=== PATIENT | male | born 1960 | race Caucasian/White ===

== ENCOUNTER 2024-09-03 09:27 | Inpatient (IN) | payer BC ==
[~2024-09-03] VITALS: Ht 182.9 cm; Wt 122.5 kg
[2024-09-03] VITALS (9 sets, daily range): BP systolic 129–156; BP diastolic 75–96; PULSE 74–137; RESP 20–24; TEMP 99.1–103; O2SAT 96–97
[~2024-09-03 09:27] MED LIST: ACTOS15 MG PO; ALDACTONE25 MG PO; AMLODIPINE BESY10 MG PO; ASPIRIN EC81 MG PO; BENICAR20 MG PO; BYSTOLIC10 MG PO; COREG12.5 MG PO; CRESTOR10 MG PO; DOXAZOSIN MESYLA2 MG PO; Docusate Sodium PO; FUROSEMIDE40 MG PO; GLIMEPIRIDE2 MG PO; HYDRALAZINE HCL25 MG PO; Insulin Glargine SQ; JANUVIA50 MG PO; MELATONIN3 MG PO; Multivitamins/Minerals PO; NORVASC5 MG PO
[2024-09-03 11:00] LABS: BASOPHILS # (AUTO) 0.1 (0.0-0.1); BASOPHILS % 0.4 % (0.0-1.0); EOSINOPHILS % 0.1 % (0.0-6.0); HEMATOCRIT 35.2 % (38.2-49.6); HEMOGLOBIN 11.5 g/dL (14.0-18.0); LYMPHOCYTES # (AUTO) 0.8 (1.0-3.2); LYMPHOCYTES % 5.9 % (18.0-39.1); MEAN CORPUSCULAR HEMOGLOBIN 31.2 pg (28-32); MEAN CORPUSCULAR HGB CONC 32.7 g/dL (31-35); MEAN CORPUSCULAR VOLUME 95.4 fL (81-99); MONOCYTES # (AUTO) 0.7 (0.2-0.8); MONOCYTES % 5.6 % (4.4-11.3); NEUTROPHILS # (AUTO) 11.5 (2.1-6.9); NEUTROPHILS % 87.5 % (38.7-80.0); PLATELET COUNT 152 x10e3/uL (140-360); RED BLOOD COUNT 3.69 x10e6/uL (4.3-5.7); RED CELL DISTRIBUTION WIDTH 13.8 % (11.7-14.4); WHITE BLOOD COUNT 13.15 x10e3/uL (4.8-10.8)
[2024-09-03 11:14] LABS: BILIRUBIN,URINE NEGATIVE (NEGATIVE); CLARITY,URINE CLOUDY (CLEAR); COLOR,URINE YELLOW (YELLOW); GLUCOSE, URINE 1+ (NEGATIVE); KETONES,URINE NEGATIVE (NEGATIVE); LEUKOCYTE ESTERASE ,URINE LARGE (NEGATIVE); NITRITE,URINE NEGATIVE (NEGATIVE); PH,URINE 5.5 (5 - 7); PROTEIN,URINE DIPSTICK >=300 (NEGATIVE); URINE UROBILINOGEN 0.2 mg/dL (0.2 - 1)
[2024-09-03 11:20] LABS: ALBUMIN 3.4 g/dL (3.5-5.0); ALBUMIN/GLOBULIN RATIO 0.9 (0.8-2.0); ANION GAP 14.7 mmol/L (8-16); BILIRUBIN,TOTAL 1.2 mg/dL (0.2-1.2); CALCIUM 9.6 mg/dL (8.4-10.2); CREATININE, SERUM 2.77 mg/dL (0.72-1.25); POTASSIUM 3.7 mmol/L (3.5-5.1); TOTAL PROTEIN 7.2 g/dL (6.5-8.1)
[2024-09-03 11:47] LABS: BACTERIA,URINE MANY /HPF; EPITHELIAL CELLS,URINE FEW /LPF; WBC,URINE (MAN) >50 /HPF (0-5)
[2024-09-03] MEDS: SODIUM CHLORIDE 0.9% 1000ML 1,000 ML IV SCH ×2 (13:10→17:16)
[2024-09-03] MEDS: ACETAMINOPHEN 1000 MG/100 ML IV STA (13:13)
[2024-09-03] MEDS: ONDANSETRON HCL INJ 2MG/ML 2ML 2 MG/ML VIAL IV STA (13:14)
[2024-09-03] MEDS ORDERED: ENTRESTO 97 MG1 EACH PO (18:24)
[2024-09-03] MEDS ORDERED: CLOPIDOGREL75 MG PO (18:24)
[2024-09-03] MEDS ORDERED: REVATIO20 MG PO (18:24)
[2024-09-03] MEDS ORDERED: MELATONIN3 MG PO (18:24)
[2024-09-03] MEDS ORDERED: GLIMEPIRIDE4 MG PO (18:24)
[2024-09-03] MEDS ORDERED: VITAMIN C500 MG PO (18:24)
[2024-09-03] MEDS: ACETAMINOPHEN 325 MG TAB PO PRN (20:19)
[2024-09-04] VITALS (8 sets, daily range): BP systolic 117–145; BP diastolic 64–96; PULSE 74–99; RESP 18–24; TEMP 98.2–99.6; O2SAT 92–97
[2024-09-04 05:58] LABS: BASOPHILS % 0.3 % (0.0-1.0); EOSINOPHILS % 0.1 % (0.0-6.0); HEMATOCRIT 32.9 % (38.2-49.6); HEMOGLOBIN 10.7 g/dL (14.0-18.0); LYMPHOCYTES # (AUTO) 0.6 (1.0-3.2); MEAN CORPUSCULAR HEMOGLOBIN 31.3 pg (28-32); MEAN CORPUSCULAR HGB CONC 32.5 g/dL (31-35); MEAN CORPUSCULAR VOLUME 96.2 fL (81-99); MONOCYTES # (AUTO) 0.9 (0.2-0.8); MONOCYTES % 7.9 % (4.4-11.3); NEUTROPHILS # (AUTO) 9.8 (2.1-6.9); NEUTROPHILS % 86.1 % (38.7-80.0); PLATELET COUNT 129 x10e3/uL (140-360); RED BLOOD COUNT 3.42 x10e6/uL (4.3-5.7); RED CELL DISTRIBUTION WIDTH 13.5 % (11.7-14.4); WHITE BLOOD COUNT 11.36 x10e3/uL (4.8-10.8)
[2024-09-04 06:21] LABS: CALCIUM 8.6 mg/dL (8.4-10.2); CREATININE, SERUM 2.19 mg/dL (0.72-1.25)
[2024-09-04] MEDS ORDERED: DEXTROSE 50% SYRINGE 50 ML IV PRN ×3 (10:15)
[2024-09-04] MEDS: VALSARTAN PO SCH (10:24)
[2024-09-04] MEDS: [UNRECOGNIZED DRUG - OTHER] PO SCH (10:24)
[2024-09-04] MEDS: AMLODIPINE BESYLATE 5 MG TAB PO SCH (10:25)
[2024-09-04] MEDS: CARVEDILOL 12.5 MG TAB PO SCH (10:25)
[2024-09-04] MEDS: INSULIN REGULAR, HUMAN 100 UNIT/1 ML SQ SCH (10:35)
[2024-09-04] MEDS ORDERED: INSULIN REGULAR, HUMAN 100 UNIT/1 ML SQ SCH (11:30)
[2024-09-04] MEDS: MEROPENEM 1 GM in SODIUM CHLORIDE 0.9% 100 ML IV SCH (12:14)
[2024-09-04] MEDS: DOCUSATE SODIUM 100 MG CAP PO SCH (16:43)
[2024-09-04] MEDS: HYDRALAZINE HCL 10 MG TAB PO SCH (16:43)
[2024-09-05] VITALS (12 sets, daily range): BP systolic 119–174; BP diastolic 66–81; PULSE 79–92; RESP 18–22; TEMP 97.3–99.4; O2SAT 94–99
[2024-09-06] VITALS (7 sets, daily range): BP systolic 135–175; BP diastolic 70–89; PULSE 74–88; RESP 18–22; TEMP 98.2–98.8; O2SAT 94–98
[2024-09-06] MEDS: FUROSEMIDE INJ 10 MG/ML 4 ML VIAL IV ONE (10:03)
[2024-09-06] MEDS: ENOXAPARIN SOD INJ 40 MG/0.4 ML SYR SC ONE (10:03)
[2024-09-06 10:33] LABS: BASOPHILS % 0.5 % (0.0-1.0); EOSINOPHILS # (AUTO) 0.1 (0.0-0.4); EOSINOPHILS % 1.5 % (0.0-6.0); HEMATOCRIT 30.9 % (38.2-49.6); LYMPHOCYTES # (AUTO) 0.8 (1.0-3.2); MEAN CORPUSCULAR HEMOGLOBIN 31.2 pg (28-32); MEAN CORPUSCULAR HGB CONC 32.4 g/dL (31-35); MEAN CORPUSCULAR VOLUME 96.3 fL (81-99); MONOCYTES # (AUTO) 0.8 (0.2-0.8); MONOCYTES % 10.2 % (4.4-11.3); NEUTROPHILS # (AUTO) 6.3 (2.1-6.9); NEUTROPHILS % 77.2 % (38.7-80.0); PLATELET COUNT 168 x10e3/uL (140-360); RED BLOOD COUNT 3.21 x10e6/uL (4.3-5.7); RED CELL DISTRIBUTION WIDTH 13.5 % (11.7-14.4); WHITE BLOOD COUNT 8.12 x10e3/uL (4.8-10.8)
[2024-09-06 10:44] LABS: ANION GAP 16.2 mmol/L (8-16); CALCIUM 8.5 mg/dL (8.4-10.2); CREATININE, SERUM 1.29 mg/dL (0.72-1.25); POTASSIUM 4.2 mmol/L (3.5-5.1)
[2024-09-06] MEDS: GLIMEPIRIDE 2 MG TAB PO SCH (11:05)
[2024-09-06] MEDS: INSULIN GLARGINE 100 UNITS/ML VIAL SQ SCH (21:17)
[2024-09-07] VITALS (8 sets, daily range): BP systolic 150–164; BP diastolic 83–92; PULSE 70–89; RESP 17–22; TEMP 97.5–98.9; O2SAT 95–98
[2024-09-08] VITALS: BP 142/63; PULSE 80; RESP 18; TEMP 97.6; O2SAT 95
[2024-09-08 05:47] LABS: BASOPHILS # (AUTO) 0.1 (0.0-0.1); BASOPHILS % 0.6 % (0.0-1.0); EOSINOPHILS # (AUTO) 0.3 (0.0-0.4); EOSINOPHILS % 2.7 % (0.0-6.0); HEMATOCRIT 29.8 % (38.2-49.6); HEMOGLOBIN 9.8 g/dL (14.0-18.0); LYMPHOCYTES # (AUTO) 1.3 (1.0-3.2); MEAN CORPUSCULAR HEMOGLOBIN 31.2 pg (28-32); MEAN CORPUSCULAR HGB CONC 32.9 g/dL (31-35); MEAN CORPUSCULAR VOLUME 94.9 fL (81-99); MONOCYTES # (AUTO) 0.8 (0.2-0.8); MONOCYTES % 8.2 % (4.4-11.3); NEUTROPHILS # (AUTO) 7.6 (2.1-6.9); NEUTROPHILS % 74.4 % (38.7-80.0); PLATELET COUNT 224 x10e3/uL (140-360); RED BLOOD COUNT 3.14 x10e6/uL (4.3-5.7); RED CELL DISTRIBUTION WIDTH 13.2 % (11.7-14.4); WHITE BLOOD COUNT 10.18 x10e3/uL (4.8-10.8)
[2024-09-08 06:06] LABS: ANION GAP 13.4 mmol/L (8-16); CALCIUM 8.9 mg/dL (8.4-10.2); CREATININE, SERUM 1.21 mg/dL (0.72-1.25)
[2024-09-08 06:14] LABS: POTASSIUM 3.4 mmol/L (3.5-5.1)
[2024-09-08 08:05] VITALS: BP 161/87; PULSE 74; RESP 18; TEMP 98.5; O2SAT 97
[2024-09-08 08:17] VITALS: BP 161/87; PULSE 74; RESP 18; TEMP 98.5; O2SAT 97
[2024-09-08 12:27] VITALS: BP 149/92; PULSE 76; RESP 20; TEMP 99.5; O2SAT 96
[2024-09-08] MEDS ORDERED: CEPHALEXIN500 M1 PO (13:11)
== END 2024-09-08 13:25 | disposition home or self-care (01) | DRG 872 ==
LOC: ER 10:15 → ERHOLD 13:43 → MED/SURG2 16:43
PROVIDERS: ADMIT Internal Medicine; ATTEND Internal Medicine
PROC: 3E0333Z Introduction of Anti-inflammatory into Peripheral Vein, Percutaneous Approach (ICD-10-PCS; principal; 2024-09-03)
DX: A41.50 Gram-negative sepsis, unspecified (principal); E87.20 Acidosis, unspecified; I13.0 Hypertensive heart and chronic kidney disease with heart failure and stage 1 through stage 4 chronic kidney disease, or unspecified chronic kidney disease; I50.22 Chronic systolic (congestive) heart failure; N12 Tubulo-interstitial nephritis, not specified as acute or chronic; N39.0 Urinary tract infection, site not specified; N17.9 Acute kidney failure, unspecified; E87.1 Hypo-osmolality and hyponatremia; B96.1 Klebsiella pneumoniae [K. pneumoniae] as the cause of diseases classified elsewhere; E11.22 Type 2 diabetes mellitus with diabetic chronic kidney disease; E11.65 Type 2 diabetes mellitus with hyperglycemia; D64.9 Anemia, unspecified; N18.9 Chronic kidney disease, unspecified; R32 Unspecified urinary incontinence; N35.919 Unspecified urethral stricture, male, unspecified site; R53.81 Other malaise; E86.0 Dehydration; Z91.81 History of falling; Z79.4 Long term (current) use of insulin; Z79.82 Long term (current) use of aspirin; Z79.84 Long term (current) use of oral hypoglycemic drugs; Z95.810 Presence of automatic (implantable) cardiac defibrillator; Z83.3 Family history of diabetes mellitus; Z82.49 Family history of ischemic heart disease and other diseases of the circulatory system
CPT/HCPCS: 36415; 71045; 74176; 80048; 80053; 81001; 82948; 83605; 85025; 87040; 87071; 87086; 87186; 87205; 94799; 99284; J0690; J0696; J1650; J1940; J2185; J2405; J7030; J7050